=== PATIENT | female | born 1965 | race Caucasian/White ===

== ENCOUNTER → 2017-07-26 | Outpatient (CLI) | payer OTHER ==
[~2017-07-26] MED LIST: FEXO15TA PO; LEVO5TAB8 PO; SYMB160A INH
[2017-07-26 12:28] LABS: AUTOMATED NEUTROPHIL # 2.3 TH/MM3 (1.8-7.7); BASOPHIL % 0.3 % (0.0-2.0); EOSINOPHIL # 0.2 TH/MM3 (0-0.4); EOSINOPHIL % 5.2 % (0.0-4.0); HEMATOCRIT 39.9 % (35.0-46.0); HEMOGLOBIN 13.4 GM/DL (11.6-15.3); LYMPH % 33.2 % (9.0-44.0); LYMPHOCYTE # 1.5 TH/MM3 (1.0-4.8); MEAN CELL VOLUME 91.6 FL (80.0-100.0); MEAN CORPUSCULAR HEMOGLOBIN 30.8 PG (27.0-34.0); MEAN CORPUSCULAR HGB CONC 33.6 % (32.0-36.0); MEAN PLATELET VOLUME 10.4 FL (7.0-11.0); MONO % 10.2 % (0.0-8.0); MONOCYTE # 0.5 TH/MM3 (0-0.9); NEUT % 51.1 % (16.0-70.0); PLATELET COUNT 190 TH/MM3 (150-450); RED BLOOD COUNT 4.36 MIL/MM3 (4.00-5.30); RED CELL DISTRIBUTION WIDTH 13.3 % (11.6-17.2); WHITE BLOOD COUNT 4.5 TH/MM3 (4.0-11.0)
[2017-07-26 12:49] LABS: BICARBONATE 31.1 MEQ/L (21.0-32.0)
--- NOTE | 2017-07-27 20:57 | EKG ---
Date Performed: 07/26/2017 Time Performed: 12:14:23 PTAGE: 51 years EKG: SINUS BRADYCARDIA LOW QRS VOLTAGE IN PRECORDIAL LEADS POSSIBLE ANTERIOR MYOCARDIAL INFARCTI ON, PROBABLY OLD BORDERLINE ECG PREVIOUS TRACING : 07/26/2017 12.12 DOCTOR: Clovis Rodgers Interpretating Date/Time 07/27/2017 20:56:23
== END ==
LOC: CPRE 11:51
PROVIDERS: ATTEND Obstetrics & Gynecology
DX: Z01.810 Encounter for preprocedural cardiovascular examination (principal); Z01.812 Encounter for preprocedural laboratory examination; Z01.818 Encounter for other preprocedural examination; R94.31 Abnormal electrocardiogram [ECG] [EKG]
CPT/HCPCS: 36415; 80051; 85025; 93005

== ENCOUNTER → 2017-08-03 | Day surgery (SDC) | payer OTHER ==
[~2017-08-03] VITALS: Ht 157.5 cm; Wt 64.4 kg
[~2017-08-03] MED LIST changes: +*MEPERIDINE 25 MG INJ VIAL PERIprocedural Use ONLY ONE; +ACETAMINOPHEN 1000 MG/100 ML 100 ML IV ONE; +APREPITANT 40 MG CAP ONE; +CEFAZOLIN INJ 2,000 MG in SODIUM CHLORIDE 0.9% INJ 100 ML IV SCH; +CHLORHEXIDINE GLUCONATE 2 % 1 PACK (2 CLOTHS) TOPICAL PRN; +DEXAMETHASONE SOD PHOS 4 MG/ML VIAL IV ONE; +DO NOT ADM ANY ANTICOAGULANT DRUGS PRN; +FAMOTIDINE 20 MG/2 ML VIAL ONE; +HYDROmorphone HCL PF 2 MG/ML VIAL IV PUSH PRN; +HYDROmorphone HCL PF 2 MG/ML VIAL ONE; +IBUPROFEN 600 MG TAB PO PRN; +KETOROLAC TROMETHAMINE 30 MG/ML (IVP) VIAL IVP PRN; +LACTATED RINGER'S 1000 ML INJ 1,000 ML IV SCH; +LACTATED RINGER'S 1000 ML INJ 2,000 ML IV ONE; +LACTATED RINGER'S 1000 ML IV PRN; +LIDOCAINE HCL 1% PF 5 ML SYRINGE OTHER ONE; +LORazepam 0.5 MG TAB PO PRN; +METOPROLOL TARTRATE 25 MG TAB PO PRN; +MIDAZOLAM HCL 2 MG/2 ML VIAL ONE; +ONDANSETRON HCL 4 MG/2 ML VIAL IV ONE; +ONDANSETRON HCL 4 MG/2 ML VIAL IVP PRN; +POVIDONE IODINE 5% (ANTISEPSIS KIT) 4 APPLICATIONS EACH NARE PRN; +PROPOFOL 200 MG/20 ML AMP IV ONE; +RESP: ALBUTEROL 2.5 MG/3 ML NEB (PRN) ONE; +ROCURONIUM INJ 50 MG/5 ML SYRINGE IV PUSH ONE; +SODIUM CHLORIDE 0.9% 20 ML VIAL IV ONE; +SODIUM CHLORIDE 0.9% FLUSH 10 ML FLUSH IV FLUSH PRN; +SODIUM CHLORIDE 0.9% FLUSH 10 ML FLUSH IV FLUSH SCH; +SUGAMMADEX SODIUM 200 MG/2 ML VIAL IV PUSH ONE; +diphenhydrAMINE HCL 25 MG CAP PO PRN; +diphenhydrAMINE HCL 50 MG/ML VIAL ONE; +oxyCODONE/ACETAMINOPHEN 5 MG/325 MG TAB PO PRN
--- NOTE | 2017-08-03 11:10 | MP ---
cc: John Zhang MD DATE OF OPERATION: 08/03/2017 PREOPERATIVE DIAGNOSIS: Patient with postmenopausal bleeding, endometrial hyperplasia. PROCEDURE: Robotic-assisted laparoscopic total hysterectomy, bilateral salpingo-oophorectomy. POSTOPERATIVE DIAGNOSIS: Patient with postmenopausal bleeding, endometrial hyperplasia. SURGEON: John Zhang MD. ANESTHESIA: General with endotracheal intubation. ESTIMATED BLOOD LOSS: 50 mL. DRAINS: Denis to gravity. OPERATIVE FINDINGS: The patient had enlarged uterus without any focal abnormality visible. INDICATION FOR THE PROCEDURE: The patient with a history of postmenopausal bleeding. Hysteroscopic directed biopsy was consistent with endometrial hyperplasia. After reviewing the options with the patient, she elected for hysterectomy with bilateral salpingo-oophorectomy. The patient received Ancef 2 grams prophylactically as antibiotic. PROCEDURE DESCRIPTION: The patient was taken to the operating room in stable condition, underwent general anesthesia with endotracheal intubation. She was carefully positioned in the dorsal lithotomy position using Buster stirrups on the lower extremities. She had sequential's placed on the lower extremities for VTE prophylaxis. After she was prepped and draped, a time-out was conducted, agreed by all present in the room. The procedure continued by placing a Denis catheter under sterile technique draining clear urine. The cervix was identified and a large VCare device was then selected and the VCare was placed through the cervical os without difficulty. Retractors were changed. Gloves were changed. The abdomen was examined. There were no deformities, scars or lesions. 0.25% plain Marcaine was used to inject all trocar sites. The first site was the umbilical port using a 5 mm trocar gaining direct entry into the peritoneal cavity without complication. Two liters of CO2 were insufflated at low pressure. The accessory ports were used using 8 mm trocars, one on the left and then 2 on the right and the umbilical port was traded up to a 12 mm camera port. The patient had been previously placed in steep Trendelenburg positioning and review of the pelvic anatomy was noted. The [id number] Digital patient cart was then side docked with the #2 arm on the left and the 1 and 3 on the right. Monopolar scissors were attached to the #2 and a [place] bipolar grasper attached to #1 and a fenestrated grasper attached to #3. Good articulation was noted. No collisions were noted. Attention was directed to the surgeon cart where review of the adjacent vital structures and anatomic landmarks were made. The bladder and ureters were intact easily visualized through the peritoneum. The bowel was not complicated or involved. Both ovaries appeared normal size and shape. After identifying the landmarks, the round ligament on the right was then ligated hemostatically opening the broad ligament transversely and then connecting it to the contralateral left side dividing the round ligament. The infundibulopelvic vessels were skeletonized paying careful attention away from any vital structure. This allowed isolation and dissection of the uterine artery and vein. The dissection was complete bilaterally in the same fashion with the same technique with good result. After the vessels were secured, pedicles were dry, the colpotomy incisions were made both posterior and anterior allowing a circumferential incision to be made to remove the cervix intact with the uterus. The uterus intact with the tubes and ovaries was removed from the vaginal opening. The #1 Stratafix suture was then introduced x 2 and then closure of the cuff was made in a linear fashion starting from each angle. The integrity of the closure was documented and tested with a sponge stick placed by the bilingual administrative assistant with no gaps or defect. Pressure on the cuff showed good integrity. After completion of the closure of the cuff, the sutures were trimmed at the level of the peritoneum. The needles were secured and then the da Piero patient cart was undocked. Straight laparoscopy was then utilized to retrieve the needles. The pelvis was irrigated with normal saline and observed. The observation of the pelvis off pressure revealed no active bleeding or hematoma. All free fluid and blood clot was removed. Again, confirmation of the integrity of the urinary system was noted. Clear urine was draining throughout the case. The umbilical port was then closed with a #1 Vicryl suture using a crossbow device. After this was complete, the trocars were removed. The pneumoperitoneum was decompressed and the skin incisions were closed with a subcuticular stitch of 4-0 Monocryl, Steri-Strips and Band-Aids. Examination of the vaginal vault again was dry at the end of the case. Final count was correct at the completion of the case and the patient was then taken to the recovery on room air, extubated in stable condition. MD TG Monet/DIONNA , 10:35 AM , 11:09 AM
[2017-08-03 13:11] VITALS: BP 136/84; PULSE 67; RESP 18; TEMP 97.6; O2SAT 99
== END | disposition home or self-care (01) ==
LOC: HSDC 06:10
PROVIDERS: ATTEND Obstetrics & Gynecology
DX: N95.0 Postmenopausal bleeding (principal); N85.00 Endometrial hyperplasia, unspecified
CPT/HCPCS: 00840; 58552; 86850; 86900; 86901; 88309; J0131; J0690; J1100; J1170; J1200; J1885; J2175; J2250; J2405; J3010; J7120; J7613; J8501; 88307